=== PATIENT | male | born 1970 | race Caucasian/White ===

== ENCOUNTER 2023-03-03 20:26 | Emergency (ER) | payer MEDICARE, MEDICAID ==
[~2023-03-03] VITALS: Ht 180.3 cm; Wt 100.0 kg
[2023-03-03 20:30] VITALS: BP 142/76; PULSE 98; RESP 18; TEMP 98.4; O2SAT 100
== END 2023-03-04 00:17 | disposition left against medical advice (07) ==
LOC: ER 20:26
DX: F41.9 Anxiety disorder, unspecified (principal); Z53.21 Procedure and treatment not carried out due to patient leaving prior to being seen by health care provider
CPT/HCPCS: 99281